=== PATIENT | female | born 1965 | race Caucasian/White ===

== ENCOUNTER 2016-04-16 05:09 | Observation (INO) | payer BC, OTHER ==
[2016-04-07 13:03] VITALS: BMI 38.0
--- NOTE | 2016-04-07 13:54 | PAT Medication Instructions ---
"Service Date Apr 07, 2016. Current Home Medication List Cephalexin Monohydrate (Keflex), 250 MG PO HS PRN for D Cholecalciferol (Vitamin D), 2,000 UNITS PO HS Ciprofloxacin Tab (Cipro), 250 MG PO HS Clonazepam (Klonopin), 0.5 MG PO HS Cyanocobalamin (Vitamin B12), 1 DOSE INJ MONTHLY Doxycycline Monohydrate (Monodox), 100 MG PO HS PRN for D Eluxadoline (Viberzi), 75 MG PO BID Levothyroxine Sodium (Synthroid), 50 MCG PO HS [place]agon[place] Carbonate (Paragonah Carbonate), 600 MG PO HS Nystatin/Triamcinolone (Mycogen || ), 1 DOSE TOP DAILY Omeprazole (Prilosec), 40 MG PO HS Quetiapine Fumarate Xr (Seroquel Xr), 400 MG PO HS Simvastatin (Zocor), 20 MG PO HS Terconazole Vaginal (Zazole), 1 DOSE TOP UD PRN for out patient therapist Instructions For Your Scheduled Surgery Cephalexin Monohydrate (Keflex), 250 MG PO HS PRN for D (rotates medications for chronic UTI's) Ciprofloxacin Tab (Cipro), 250 MG PO HS (rotates medications for chronic UTI's- currently on Cipro- will change to Keflex on 04/14/16) Doxycycline Monohydrate (Monodox), 100 MG PO HS PRN for D (rotates medications for chronic UTI's) Cyanocobalamin (Vitamin B12), 1 DOSE INJ MONTHLY (continue as usual) - Hold the following medications 24 hours prior to surgery: Terconazole Vaginal (Zazole), 1 DOSE TOP UD PRN for RN Nystatin/Triamcinolone (Mycogen || ), 1 DOSE TOP DAILY - Hold the following medications the morning of surgery: Eluxadoline (Viberzi), 75 MG PO BID (can take after surgery) - Take the following medications as scheduled the night before surgery: Simvastatin (Zocor), 20 MG PO HS Omeprazole (Prilosec), 40 MG PO HS Quetiapine Fumarate Xr (Seroquel Xr), 400 MG PO HS Levothyroxine Sodium (Synthroid), 50 MCG PO HS [place] Carbonate ([place] Carbonate), 600 MG PO HS Clonazepam (Klonopin), 0.5 MG PO HS Cholecalciferol (Vitamin D), 2,000 UNITS PO HS Cephalexin Monohydrate (Keflex), 250 MG PO HS PRN Eluxadoline (Viberzi), 75 MG PO BID If you have any questions please call us at [phone] or [phone] ( [place]) or [phone]"
[2016-04-07 14:33] LABS: PROTHROMBIN TIME (PATIENT) 10.3 SECONDS (9.0-12.0)
[2016-04-07 14:49] LABS: BUN/CREATININE RATIO 12.4 (10-20); CALCIUM 9.6 mg/dl (8.5-10.1); CREATININE 0.87 mg/dl (0.60-1.20); POTASSIUM 4.1 mmol/L (3.5-5.1)
[~2016-04-16] VITALS: Ht 157.5 cm; Wt 94.5 kg
[2016-04-16] VITALS (7 sets, daily range): BP systolic 137–155; BP diastolic 77–88; PULSE 70–89; TEMP 36.3–37; O2SAT 92–95; Ht 157.5 cm; Wt 94.5 kg
[~2016-04-16 05:09] MED LIST: CHOL20009 PO; CIPR1TAB11 PO; CLON0.5T3 PO; CYAN1DRO INJ; DOXY100C76 PO; ELUX1TAB PO; KFL/250 PO; LEVO50TA PO; LITH150C6 PO; NYSTCRE11 TOP; PRLSR20 PO; QUET200T2 PO; SIMV20TA2 PO; [UNRECOGNIZED DRUG - CODE] TOP; ~ANCEF~ALLERGY NOTED TO ORDERED MEDICATION SCH
[2016-04-16] MEDS ORDERED: LACTATED RINGER'S 1000ML 1,000 ML IV SCH (06:00)
[2016-04-16] MEDS ORDERED: CEFAZOLIN 2000 MG/60 ML D5W IV SCH (06:00)
[2016-04-16] MEDS ORDERED: ENOXAPARIN 40 MG/0.4 ML SYR SQ SCH (06:00)
[2016-04-16] MEDS ORDERED: METOCLOPRAMIDE HCL INJ 5 MG/ML 2 ML VIAL ONE (06:15)
[2016-04-16] MEDS ORDERED: MIDAZOLAM HCL 1 MG/ML 2ML VIAL ONE (06:21)
[2016-04-16] MEDS ORDERED: PROPOFOL IV EMULSION 10 MG/ML 20 ML VIAL IV ONE ×2 (06:21→06:37)
[2016-04-16] MEDS ORDERED: SUCCINYLCHOLINE CHLORIDE 20 MG/ML 10 ML VIAL IV ONE (06:21)
[2016-04-16] MEDS ORDERED: EpHEDrine SULFATE INJ 50 MG/ML AMP ONE ×2 (06:21→11:46)
[2016-04-16] MEDS ORDERED: PHENYLEPHRINE HCL INJ 10 MG/ML VIAL ONE (06:21)
[2016-04-16] MEDS ORDERED: FENTANYL CITRATE INJ 50 MCG/1 ML 2 ML VIAL ONE ×4 (06:21→13:11)
[2016-04-16] MEDS ORDERED: ROCURONIUM BROMIDE 10 MG/ML 5 ML VIAL ONE (06:21)
[2016-04-16] MEDS ORDERED: GLYCOPYRROLATE INJ 0.2 MG/ML VIAL ONE (06:21)
[2016-04-16] MEDS ORDERED: NEOSTIGMINE METHYLSULFATE 5 MG/5 ML SYR ONE (06:21)
[2016-04-16] MEDS ORDERED: DEXAMETHASONE SOD INJ 4 MG/ML VIAL ONE (06:21)
[2016-04-16] MEDS ORDERED: LIDOCAINE HCL 2% 2 ML VIAL (20MG/ML) ONE (06:21)
[2016-04-16] MEDS ORDERED: ONDANSETRON INJ 2 MG/ML 2 ML VIAL ONE ×3 (06:21→08:18)
[2016-04-16] MEDS ORDERED: KETAMINE HCL INJ 50 MG/ML 10 ML VIAL ONE (06:22)
--- NOTE | 2016-04-16 07:03 | History & Physical Bridge Note ---
H&P Re-Evaluation Bridge Note: I have examined the patient, reviewed the History & Physical and in the interval since the performance of the History & Physical I have noted the following changes of clinical significance: remains on Keflex per Dr. Sparks for chronic UTI. 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 Currently has some irritation under pannus which she has been treating. Discussed whether to proceed; per patient this looks about the same, possibly better, than usual so will plan to proceed. She understands there is a possibility of post op infection but I do not think we will be able to get irritation any better by delaying panniculectomy.
[2016-04-16] MEDS ORDERED: LIDOCAINE/EPINEPHRINE 1% 20 ML VIAL ONE ×2 (07:13→10:35)
[2016-04-16] MEDS ORDERED: ACETAMINOPHEN 1000 MG/100 ML IV IV ONE (09:08)
[2016-04-16] MEDS ORDERED: BUPIVACAINE 0.25% 30 ML VIAL ONE (10:32)
[2016-04-16] MEDS: BUPIVACAINE 0.25% 30 ML VIAL ONE (13:00)
--- NOTE | 2016-04-16 13:36 | [facility] Post Operative Brief Note ---
Immediate Operative Summary Operative Date Apr 16, 2016. Pre-Operative Diagnosis Lipodystrophy, Breast Hypertrophy Post-Operative Diagnosis Bilateral Breast Reduction and Panniculectomy Procedure(s) Performed Bilateral Breast Reduction and Panniculectomy Surgeon Dr. Yumiko Garcia Referral Management Liaison Surgeon(s) Gracie Puri PA-C Estimated Blood Loss 100ml Findings NACs pink and viable at close of case Specimens A: Left breast tissue, total weight 344 grams B: Right breast tissue, total weight 416 grams C: Lower abdominal pannus with chronic intertrigo Drains BRYAN x4 Anesthesia GET Complication(s) None Disposition Recovery Room / PACU
[2016-04-16] MEDS ORDERED: ONDANSETRON INJ 2 MG/ML 2 ML VIAL IV PRN ×2 (14:00)
[2016-04-16] MEDS ORDERED: FLUMAZENIL 0.1 MG/1 ML 10 ML VIAL IV PRN (14:00)
[2016-04-16] MEDS ORDERED: HYDROCODONE/ACETAMOPHEN 5/325MG TAB PO PRN ×2 (14:00)
[2016-04-16] MEDS ORDERED: OXAZEPAM 10MG CAP PO PRN (14:00)
[2016-04-16] MEDS ORDERED: ACETAMINOPHEN 325 MG TAB PO PRN (14:00)
[2016-04-16] MEDS ORDERED: ATROPINE SULFATE 0.1 MG/ML 5ML SYR IV PRN (14:00)
[2016-04-16] MEDS ORDERED: CEPHALEXIN MONOHYDRATE 250 MG CAP PO PRN (14:00)
[2016-04-16] MEDS ORDERED: DiphenhydrAMINE HCL 50 MG/ML VIAL IV PRN (14:00)
[2016-04-16] MEDS ORDERED: PROMETHAZINE HCL INJ 12.5 MG in SODIUM CHLORIDE 0.9% 50ML 50 ML IV PRN ×4 (14:00)
[2016-04-16] MEDS ORDERED: EpHEDrine SULFATE INJ 50 MG/ML AMP IV PRN (14:00)
[2016-04-16] MEDS ORDERED: NALOXONE HCL 0.4 MG/1 ML VIAL/CARP IV PRN (14:00)
[2016-04-16] MEDS ORDERED: MEPERIDINE HCL 25 MG/ML CARP IV PRN (14:00)
--- NOTE | 2016-04-16 14:02 | Discharge Instructions ---
Discharge Instructions Admission Reason for Admission: Bilateral Symptomatic Macromastia, Abdominal Benjamin Discharge Discharge Diagnosis / Problem: macromastia and abdominal pannus Discharge Goals Goal(s): Decrease discomfort Activity Recommendations Activity Limitations: as noted below ACTIVITY RECOMMENDATIONS: __Normal activities _x_No bending, lifting or straining __No driving __Driving allowed when you are off pain medications __Walking permitted __You should have help at home for ___ days DRESSINGS: __No dressings required _x_Keep dressings dry/in place until first office visit __Remove dressings ___ and leave dressings off __Apply ice ___ days __Remove dressings and reapply garment __Apply antibiotic ointment (Bacitracin, Neosporin, etc) to wounds 3-4 times/ day for 10 days BATHING: _x_Keep dressings dry _x_Sponge bathing permitted __Showering permitted _x_No swimming, hot tubs or soaking in a tub MEDICATIONS: Resume previous medications unless instructed otherwise by your surgeon. _x_Do not use aspirin, Motrin, Advil or Ibuprofen as these may promote bleeding. Please use Tylenol. _x_Prescription(s) provided: pain medication was provided at your last office visit OTHER INSTRUCTIONS: _x_Record drain output 2-3 times per day SPECIAL CARE INSTRUCTIONS: * It is normal to have a mild fever after surgery. If your temperature is higher than 101.5 degrees F, please call the office at [phone]. * Constipation is a typical side effect of pain medication. An over-the- counter stool softener will help relieve this. * Leaking around surgical drains may occur and should not cause concern. Sometimes these drains become clogged. If this happens, remove the bulb and milk the clot out of the tube, then replace the bulb. * Drainage from wounds after liposuction is normal and should be expected. Garments will become soiled. You should protect furniture and bedding. This drainage should mostly subside within 2-3 days. Leave garments in place unless instructed to remove them. * If you have unusual drainage from a wound or are concerned you have an infection or have any questions or concerns, please call the office at [phone]. FOLLOW UP VISIT: If not already scheduled, please call the office, , when you return home after surgery to schedule an appointment to be seen in __2_ days. . Current Hospital Diet Patient's current hospital diet: Regular Diet Discharge Diet Recommended Diet: Regular Diet Procedures Procedures Performed: Bilateral Breast Reduction and Panniculectomy Pending Studies Studies pending at discharge: yes List of pending studies: pathology Medical Emergencies . Who to Call and When: Medical Emergencies: If at any time you feel your situation is an emergency, please call 911 immediately. . Non-Emergent Contact Non-Emergency issues call your: Primary Care Provider, Surgeon . "Provider Documentation" section prepared by Gracie uPri. VTE Core Measure Inpt VTE Proph given/why not?: Enoxaparin (Lovenox)SQ
[2016-04-16] MEDS ORDERED: HYDROmorphone INJ 1 MG/ML SYR ONE (14:10)
[2016-04-16] MEDS: HYDROmorphone INJ 1 MG/ML SYR IV PRN ×7 (14:14→15:10)
[2016-04-16] MEDS ORDERED: IV FLUIDS COMPLETED PRN (14:30)
--- NOTE | 2016-04-16 15:39 | Progress Note ---
Progress Note Post op check Doing well. Sleepy. afebrile VSS dressings c/d/i to breasts and abdomen NACs pink and viable bilaterally Stable post op continued observation cueto out in am
[2016-04-16] MEDS: LACTATED RINGER'S 1000ML 1,000 ML IV SCH (17:27)
[2016-04-16] MEDS: CEFAZOLIN IV 2,000 MG in DEXTROSE 5% 50ML 50 ML IV SCH (19:14)
[2016-04-16] MEDS ORDERED: LEVOTHYROXINE 50 MCG TAB PO SCH (21:00)
[2016-04-16] MEDS ORDERED: CLONAZEPAM 0.5 MG TAB PO SCH (21:00)
[2016-04-16] MEDS ORDERED: QUETIAPINE FUMARATE 200 MG TABCR PO SCH (21:00)
[2016-04-16] MEDS ORDERED: SIMVASTATIN 20 MG TAB PO SCH (21:00)
[2016-04-17] MEDS: CEFAZOLIN IV 2,000 MG in DEXTROSE 5% 50ML 50 ML IV SCH (01:42)
[2016-04-17] MEDS: LACTATED RINGER'S 1000ML 1,000 ML IV SCH ×2 (03:15→13:15)
[2016-04-17 03:51] VITALS: BP 144/85; PULSE 78; TEMP 36.8; O2SAT 92
[2016-04-17 07:10] VITALS: BP 155/93; PULSE 77; TEMP 36.6; O2SAT 93
[2016-04-17] MEDS ORDERED: ENOXAPARIN 40 MG/0.4 ML SYR SQ SCH (09:00)
[2016-04-17] MEDS ORDERED: MULTIVITAMIN TAB PO SCH (09:00)
[2016-04-17] MEDS ORDERED: CHOLECALCIFEROL 1000 INTER.UNIT TAB PO SCH (09:00)
[2016-04-17 11:39] VITALS: BP 118/74; PULSE 77; TEMP 36.3; O2SAT 93
--- NOTE | 2016-04-17 12:00 | Surgery Progress Note ---
Surgery Progress Note Date of Service Apr 17, 2016. Subjective Post OP Day: 1 + feeling well, + pain controlled, No complaints, No nausea, No vomiting Objective Vital Signs: Date Time Temp Pulse Resp B/P Pulse Ox O2 Delivery O2 Flow Rate FiO2 04/17/16 11:39 36.3 77 18 118/74 93 Room Air 04/17/16 07:40 Room Air 04/17/16 07:10 36.6 77 17 155/93 93 Room Air 04/17/16 03:51 36.8 78 18 144/85 92 Room Air 04/16/16 23:06 36.8 81 18 155/88 95 Nasal Cannula 2.0 04/16/16 20:00 37.0 80 16 138/83 93 Nasal Cannula 2.0 04/16/16 19:53 Nasal Cannula 2.0 04/16/16 18:54 36.7 81 18 152/88 93 Nasal Cannula 2.0 04/16/16 18:00 36.6 82 18 142/84 93 Nasal Cannula 2.0 04/16/16 17:30 36.3 85 16 147/87 92 Nasal Cannula 2.0 04/16/16 17:00 Nasal Cannula 2.0 04/16/16 17:00 Room Air 04/16/16 17:00 36.6 89 14 137/81 94 Nasal Cannula 2.0 04/16/16 16:43 152/85 04/16/16 16:40 84 15 96 04/16/16 16:40 84 15 04/16/16 16:35 74 14 96 04/16/16 16:35 74 14 04/16/16 16:30 79 15 97 04/16/16 16:30 81 15 04/16/16 16:28 144/91 04/16/16 16:25 78 14 04/16/16 16:25 82 14 96 04/16/16 16:20 83 16 96 04/16/16 16:20 84 16 04/16/16 16:15 67 13 04/16/16 16:15 70 13 94 04/16/16 16:13 149/83 04/16/16 16:10 88 18 04/16/16 16:10 89 18 95 04/16/16 16:05 77 13 95 04/16/16 16:05 78 13 04/16/16 16:04 75 16 2/8/17 16:04 73 16 94 2/8/17 15:59 78 14 95 2/8/17 15:59 78 14 04/16/17 15:58 145/78 04/16/17 15:54 67 16 2/17 15:54 68 16 95 2/8/17 15:53 132/79 04/16/17 15:49 67 16 2/8/17 15:49 65 16 94 8/17 15:48 144/81 04/16/16 15:44 74 14 94 28/17 15:44 79 14 17 15:43 150/95 04/16/ 15:39 65 16 2/17 15:39 68 16 94 04/16/16 15:38 151/90 04/16/16 15:36 74 16 94 17 15:36 77 16 17 15:33 149/84 17 15:31 77 15 17 15:31 77 15 94 17 15:28 139/78 04/16/16 15:26 87 16 17 15:26 87 16 94 04/16/16 15:23 131/83 17 15:21 73 16 94 04/16/16 15:21 70 16 17 15:18 144/76 04/16/16 15:16 89 16 93 04/16/16 15:16 87 16 04/16/16 15:14 36.8 17 15:13 153/91 17 15:11 82 17 94 17 15:11 83 17 17 15:10 82 16 2/17 15:10 81 16 93 17 15:08 137/79 04/16/16 15:05 68 14 93 04/16/16 15:05 67 14 17 15:03 150/82 04/16/16 15:00 78 16 95 04/16/17 15:00 81 16 17 14:58 147/74 04/16/16 14:55 70 16 95 04/16/ 14:55 75 16 04/16/16 14:53 149/74 04/16/16 14:50 82 19 04/16/16 14:50 81 19 94 04/16/16 14:48 137/68 04/16/16 14:45 84 16 04/16/16 14:45 84 16 94 04/16/16 14:40 86 16 95 04/16/16 14:40 85 16 04/16/16 14:39 86 16 04/16/16 14:39 86 16 95 04/16/16 14:38 139/80 04/16/16 14:34 86 18 98 04/16/16 14:34 86 18 04/16/16 14:33 146/81 04/16/16 14:29 87 14 04/16/16 14:29 87 14 99 04/16/16 14:28 142/82 04/16/16 14:24 87 17 98 04/16/16 14:24 86 17 04/16/16 14:23 145/92 04/16/16 14:19 91 19 04/16/16 14:19 91 19 99 04/16/16 14:18 145/89 04/16/16 14:16 91 19 04/16/16 14:16 92 19 99 04/16/16 14:13 133/97 04/16/16 14:11 94 18 04/16/16 14:11 93 18 100 04/16/16 14:08 154/90 04/16/16 14:06 93 19 04/16/16 14:06 93 19 100 04/16/16 14:03 152/82 04/16/16 14:01 96 19 04/16/16 14:01 96 19 98 04/16/16 13:58 122/90 04/16/16 13:56 36.6 100 20 135/78 95 Mask 10 04/16/16 13:56 98 23 96 04/16/16 13:56 101 23 Physical Exam: Pilo drainage (sanginous drainage in all drains) General Appearance: WD/WN, no apparent distress Incision(s): clean, dry, intact, no erythema, ecchymosis, findings (nipples perfusing and with sensation bilaterally, some bleeding right nipple) Assessment & Plan s/p bilateral breast reduction and panniculectomy 1. breast drains removed. patient will be d/c home today and follow-up in office tomorrow
[2016-04-17 13:22] VITALS: BP 118/74; PULSE 77; TEMP 36.3; O2SAT 93
[2016-04-17 14:57] VITALS: BP 139/83; PULSE 84; TEMP 37; O2SAT 92
[2016-04-17 16:00] VITALS: O2SAT 92
--- NOTE | 2016-04-17 17:35 | OPERATIVE REPORT ---
DATE OF OPERATION: 04/16/2016 PREOPERATIVE DIAGNOSIS: Bilateral symptomatic macromastia and overhanging abdominal pannus with chronic intertrigo. POSTOPERATIVE DIAGNOSIS: Same. PROCEDURE: Bilateral reduction mammoplasty via inferior pedicle technique with lower abdominal panniculectomy. SURGEON: Dr. Yumiko Nicole. FELLER BUNCHER OPERATOR: Gracie Puri PA-C. ANESTHESIA: General. COMPLICATIONS: None. INDICATION FOR THE PROCEDURE: The patient is a 50-year-old female who presented with complaints of back, neck and shoulder pain as well as intertrigo related to macromastia. In addition, she had an overhanging abdominal pannus with chronic intertrigo refractory to topical as well as oral antibiotics. OPERATION AND FINDINGS: BRIEF DESCRIPTION OF THE PROCEDURE: The risks, benefits and alternatives of the procedure were explained to the patient who agreed and signed consent. She was identified and marked in the preoperative holding area. She was brought to the operating room where she was positioned supine and placed under anesthesia without incident. Surgical sites were prepped and draped sterilely. A time-out procedure was performed. Markings were reassessed on the breast and a 7 cm pedicle was marked. I began with the left side. 1% lidocaine with epinephrine was used to anesthetize the planned incisions. A 38 mm cookie cutter was used to circumscribe the nipple-areolar complex. The previously marked 7 cm pedicle was incised using a 15 blade scalpel and deepithelialized. I began with medial dissection of the pedicle using electrocautery. Cautery was used to incise through dermis and breast parenchyma down to chest wall, taking care not to undermine the pedicle during dissection. A similar procedure was undertaken on the lateral aspect of the pedicle again taking care not to undercut the pedicle. Lastly, the pedicle was dissected out superiorly using electrocautery. This was carried down to chest wall. I then began excision of the medial breast tissue followed by excision of the lateral breast tissue. A 15 blade scalpel was used to make the inframammary fold incision and electrocautery was used to deepen the incision through dermis and breast parenchyma. Dissection was then carried superiorly to the level of the superior incision. Superior incision was then incised using a 15 blade scalpel and again dissected using electrocautery. A similar procedure was undertaken laterally and then around the keyhole portion of the incision. Care was taken to leave some fat on the lateral pectoral fascia in order to protect the T4 intercostal nerve. Hemostasis was achieved with electrocautery. Specimen was removed in its entirety and passed off for weighing. Left breast resection weight was 344 grams. The wound was irrigated with normal saline. Hemostasis was achieved with electrocautery. 0.25% Marcaine plain was used to anesthetize the incisions as well as the pectoralis fascia. A 15 [place] Pilo drain was brought out through a separate stab incision. The nipple-areolar complex was advanced into the keyhole using 2-0 Vicryl deep dermal suture. The T-junction was approximated using 2-0 Vicryl deep dermal suture. Wound was first closed in a lateral to mid breast direction using 2-0 Vicryl deep dermal and then medial to mid breast direction using 2-0 Vicryl deep dermal sutures. The vertical limb was reapproximated using 2-0 Vicryl deep dermal. The nipple-areolar complex was also inset using 2-0 Vicryl deep dermal. Next, the superficial dermal layer was closed using 2-0 PDO running Quill suture along the inframammary fold and 3-0 PDS for the vertical limb and nipple-areolar complex incisions. Lastly 3-0 Monocryl running subcuticular suture was placed. Inframammary fold as well as the vertical limb were dressed using Dermabond and Prineo was placed. The inframammary fold, as well as the vertical limb was dressed with Prineo and Dermabond was placed around the nipple-areolar complex. A similar procedure was undertaken on the right side. Total resection weight of the larger right breast was 416 grams. At the end of the case, there was reasonable symmetry and both nipple-areolar complexes were pink and viable. At this point, attention was turned to the abdominal pannus. The inferior incision was marked 6.5 cm superior to the vulvar commissure and was extended toward both anterior superior iliac spines to incorporate lateral dog ears, which would have been created by a shorter resection. 1% lidocaine with epinephrine was used to anesthetize the planned incision. A 15 blade scalpel was used to make the incision through the fat and into underlying dermis. The incision was deepened into subcutaneous fat and carried down to rectus fascia. This planned skin resection incorporated all of the area of chronic intertrigo. Dissection was carried along the rectus fascia toward the umbilicus. Perforating vessels were cauterized during dissection. Lateral dissection was undertaken in similar fashion. I stopped a couple of centimeters short of the umbilicus and did not plan to mobilize the umbilicus due to history of splenectomy with a left upper quadrant subcostal incision which could potentially have caused necrosis of the abdominal skin. At this point the abdominal skin flap was divided and advanced toward the mons pubis. A 2-0 Vicryl suture was used to approximate the midline. Hemostasis was achieved prior to closure using electrocautery. The wound was irrigated with saline. 0.25% Marcaine plain was used to anesthetize the rectus fascia and the drain exit sites. Two 15 [place] Pilo drains were placed in the wound bed and brought out through a separate stab incision in the mons pubis. 3-0 nylon sutures were used to suture the drains into place. At this point the superior skin flap was marked for excision. Once I was certain the abdominal skin could be closed excision was undertaken using a 15 blade scalpel to incise skin was into the dermis. The incision was deepened through dermis, subcutaneous fat, Brian's fascia and it was removed. This was performed on both sides of the abdomen. I then began closure in a lateral to medial direction bilaterally using 2-0 Vicryl Brian's fascia sutures, 2-0 Vicryl deep dermal sutures, 2-0 PDO running superficial dermal Quill suture, 3-0 Monocryl running subcuticular suture. Dermabond Prineo was placed. Dry dressings were placed to the breast and abdomen. Support bra was placed as well as an abdominal binder. The procedure was tolerated well. The patient was awakened and transferred to recovery room in satisfactory condition. I attest to the content of the Intraoperative Record and any orders documented therein. Any exceptio ns are noted below.
--- NOTE | 2016-04-22 08:39 | Discharge Summary ---
Discharge Summary Admission Date/Reason Apr 16, 2016 at 13:58 Bilateral Symptomatic Macromastia, Abdominal Benjamin. Discharge Date/Disposition Apr 17, 2016 Home Diagnosis Principal Diagnosis: Macromastia and abdominal pannus Procedure(s) Performed bilateral breast reduction and panniculectomy Medication Reconciliation Continued Medications: Cephalexin Monohydrate (Keflex) 250 Mg Cap 250 MG PO HS PRN for D, CAP Cholecalciferol (Vitamin D) 2,000 Unit Tab 2000 UNITS PO HS Clonazepam (Klonopin) 0.5 Mg Tab 0.5 MG PO HS, TAB Cyanocobalamin (Vitamin B12) 3,000 Mcg/Ml Reese 1 DOSE INJ MONTHLY LAST DOSE -04/02/16 Eluxadoline (Viberzi) 75 Mg Tab 75 MG PO BID Levothyroxine Sodium (Synthroid) 50 Mcg Tab 50 MCG PO HS [place] Carbonate ([place] Carbonate) 150 Mg Cap 600 MG PO HS Omeprazole (Prilosec) 20 Mg Capcr 40 MG PO HS, CAP Quetiapine Fumarate Xr (Seroquel Xr) 200 Mg Tabcr 400 MG PO HS, TAB Simvastatin (Zocor) 20 Mg Tab 20 MG PO HS Admission Physical Exam As per Admitting History & Physical. Hospital Course Patient presented to [facility] with history of macromastia and abdominal pannus. She was taken to the OR and underwent bilateral breast reduction and panniculectomy. There were no complications. On POD # 1, she was feeling well, pain controlled, and tolerated a regular diet. Her santosh drains were removed from the breasts. Her incisions were CDI, and her nipples were pink with sensation bilaterally. her abdominal drains had serosanguineous drainage. She was discharged home with instructions to follow-up in office Discharge Instructions Please refer to the electronic Patient Visit Report (Discharge Instructions) for additional information.
== END 2016-04-17 18:15 | disposition home health service (06) ==
LOC: ENRESERVTM → ENRESERVDT → C.ACU 05:09 → C.MSW 13:58
PROVIDERS: ADMIT Plastic Surgery; ATTEND Plastic Surgery
DX: E88.1 Lipodystrophy, not elsewhere classified (principal); N62 Hypertrophy of breast; L30.4 Erythema intertrigo; N39.0 Urinary tract infection, site not specified; F30.9 Manic episode, unspecified; I10 Essential (primary) hypertension; E03.9 Hypothyroidism, unspecified; K21.9 Gastro-esophageal reflux disease without esophagitis; E78.5 Hyperlipidemia, unspecified; Z98.84 Bariatric surgery status; Z80.1 Family history of malignant neoplasm of trachea, bronchus and lung; Z80.0 Family history of malignant neoplasm of digestive organs; Z80.3 Family history of malignant neoplasm of breast

== ENCOUNTER 2016-11-24 10:45 | Emergency (ER) | payer BC ==
[~2016-11-24] VITALS: Ht 165.1 cm; Wt 92.9 kg
[~2016-11-24 10:45] MED LIST changes: -CIPR1TAB11 PO; -DOXY100C76 PO; -NYSTCRE11 TOP; -[UNRECOGNIZED DRUG - CODE] TOP; -~ANCEF~ALLERGY NOTED TO ORDERED MEDICATION SCH
[2016-11-24 10:58] VITALS: TEMP 36.7; Ht 165.1 cm; Wt 92.9 kg
[2016-11-24] MEDS ORDERED: ACETAMINOPHEN 500 MG TAB PO STA (11:43)
[2016-11-24] MEDS ORDERED: METH500T37 PO (11:52)
[2016-11-24] MEDS ORDERED: ALMO1TAB PO (11:52)
[2016-11-24] MEDS ORDERED: NRT/25 PO (11:52)
[2016-11-24] MEDS ORDERED: CMP/10 PO (11:52)
[2016-11-24] MEDS ORDERED: NRN100 PO (11:52)
[2016-11-24] MEDS ORDERED: QUET5TAB PO (11:52)
--- NOTE | 2016-11-24 12:27 | DIAGNOSTIC IMAGING REPORT ---
CHEST ONE VIEW PORTABLE CLINICAL HISTORY: Left-sided chest wall pain COMPARISON STUDY: No previous studies for comparison. FINDINGS: The cardiac and mediastinal contours remain stable. There is mild nonspecific fullness in the AP window region. This remains unchanged from 2008, and therefore is of doubtful clinical significance. There is no focal pulmonary consolidation. There is no failure. There are no pleural effusions.[ IMPRESSION: AP portable study. No acute findings. Electronically signed by: Yuan Montgomery M.D. 11/24/2016 12:26 PM Dictated Date/Time: 11/24/2016 12:24 PM
--- NOTE | 2016-11-24 12:28 | DIAGNOSTIC IMAGING REPORT ---
LEFT SHOULDER MIN 2 VIEWS ROUTINE CLINICAL HISTORY: pain trauma COMPARISON: None. DISCUSSION: The bones and joint spaces appear intact. There is no evidence of fracture, dislocation or bony disease. There is no evidence for soft tissue swelling. IMPRESSION: Negative study. The above report was generated using voice recognition software. It may contain grammatical, syntax or spelling errors. Electronically signed by: Mushtaq Rodrigues M.D. 11/24/2016 12:26 PM Dictated Date/Time: 11/24/2016 12:25 PM
--- NOTE | 2016-11-24 12:38 | DIAGNOSTIC IMAGING REPORT ---
RIGHT FOOT MIN 3 VIEWS ROUTINE CLINICAL HISTORY: Right great toe pain TRAUMA COMPARISON: None. DISCUSSION: No acute fractures or dislocations are visualized. There are equivocal postsurgical changes of a first metatarsal bunionectomy. There is an area of sclerosis within the distal phalanx the great toe likely representing a bone island. Minor irregularity involving the medial aspect of the distal phalanx the great toe on the oblique view, likely relates to chronic degenerative change. There are no erosive changes. There are small calcaneal spurs. IMPRESSION: 1. Presumed postsurgical changes of a first metatarsal head bunionectomy 2. No acute fractures or dislocations are visualized. Electronically signed by: Yuan Montgomery M.D. 11/24/2016 12:37 PM Dictated Date/Time: 11/24/2016 12:34 PM
--- NOTE | 2016-11-24 13:00 | DIAGNOSTIC IMAGING REPORT ---
CERVICAL SPINE W/O CT DOSE: 2163.34 mGy.cm HISTORY: Trauma neck pain - fall TECHNIQUE: Multiaxial CT images of the cervical spine were performed and reformatted in the sagittal and coronal plane without the use of contrast. A dose lowering technique was utilized adhering to the principles of ALARA. COMPARISON: None. FINDINGS: No fractures. No subluxation. Prevertebral soft tissues and the C1-C2 interval are intact. No pneumothorax. Findings of an anterior fusion at the C4-C5 level. Fusion appears solid. IMPRESSION: No fractures within the cervical spine. Stable anterior fusion at the C4-C5 level The above report was generated using voice recognition software. It may contain grammatical, syntax or spelling errors. Electronically signed by: Mushtaq Rodrigues M.D. 11/24/2016 12:59 PM Dictated Date/Time: 11/24/2016 12:57 PM
--- NOTE | 2016-11-24 13:04 | DIAGNOSTIC IMAGING REPORT ---
LUMBAR SPINE WITHOUT CLINICAL HISTORY: 51 years-old Female presenting with L-spine pain, fell down 12 steps, neck pain, headache. TECHNIQUE: Multidetector CT of the lumbar spine was performed without the use of intravenous contrast. IV contrast: None. A dose lowering technique was used consistent with the principles of ALARA (as low as reasonably achievable). COMPARISON: MR from 10/26/2015. CT DOSE (mGy.cm): The estimated cumulative dose is 2163.[address] head and CT cervical spine. FINDINGS: Swing Frame Grinder Operator topogram: Cholecystectomy clips noted. Normal lumbar lordosis. Vertebral bodies maintain normal height and alignment. Intervertebral disc spaces preserved. Mild degenerative change evidenced by anterior osteophytosis at several levels. No acute fracture or subluxation. No significant disc bulge. No evidence of spinal canal or neural foraminal narrowing. Paraspinal soft tissues demonstrate atherosclerosis of the abdominal aorta, which is normal in caliber. Calcification noted in the liver parenchyma. Paraspinal musculature normal. Normal subcutaneous infiltration over the right lower flank and right upper buttocks, possibly contusion. IMPRESSION: 1. No acute osseous injury of the lumbar spine. 2. Possible contusion of the lower right flank and upper right buttocks. Electronically signed by: Andrade Villalobos M.D. 11/24/2016 1:03 PM Dictated Date/Time: 11/24/2016 12:59 PM
--- NOTE | 2016-11-24 13:04 | DIAGNOSTIC IMAGING REPORT ---
CT OF THE HEAD WITHOUT CONTRAST CLINICAL HISTORY: Headache - fall. COMPARISON STUDY: Head CT August 02, 2011 and MRI of the brain May 27, 2013. TECHNIQUE: Helical axial images of the head were obtained without IV contrast. Automated exposure control was utilized for the study. A dose lowering technique was utilized adhering to the principles of ALARA. FINDINGS: No acute intracranial hemorrhage, midline shift or mass effect is present. Ventricular system is normal. Basilar cisterns are patent. There are no extra-axial collections. Ahumada-white differentiation is maintained. There is a small right posterior scalp contusion with no calvarial fracture. Visualized portions of the sinuses and mastoid air cells are clear. IMPRESSION: 1. No acute intracranial findings. 2. Small right posterior scalp contusion. No calvarial fracture. Electronically signed by: Say Torres M.D. 11/24/2016 1:03 PM Dictated Date/Time: 11/24/2016 1:00 PM
--- NOTE | 2016-11-24 13:55 | EMERGENCY ROOM VISIT NOTE ---
History Report prepared by Ahsan: Arlyn Mock Under the Supervision of: Dr. Bony Cramer M.D. First contact with patient: 11:16 Chief Complaint: FALL Stated Complaint: FELL, LEFT SIDE ALL HURTS, HEAD HURTS History of Present Illness The patient is a 51 year old female who presents to the Emergency Room with complaints of an episode of fall TOOLER. The patient was going down the stairs carrying some clothing. She lost her footing and fell down 12-13 steps. She was on her left side for most of the fall then hit the landing and went down the remaining 4 steps on her back. She hit her head at the end of the fall. She denies feeling dizzy, lightheaded, or chest pain before the fall. She did not lose consciousness. She has been able to walk since then. She has some bleeding from her right great toe. She has pain in her head, left shoulder, left side, and lower back. She denies any chest pain, hip pain, neck pain, nausea, vomiting , change in vision, or change in hearing. He is not on any blood thinners. She has a history of fibromyalgia and back surgery. Source of History: patient Onset: TOOLER Position: other (global) Symptom Intensity: 12-13 steps Quality: other (fall) Timing: other (episodic) Associated Symptoms: + headache, + back pain (lower), No LOC, No neck pain, No chest pain, No nausea, No vomiting Note: Pt reports right great toe pain, left shoulder pain, left side pain. Pt denies dizziness, lightheadedness, hip pain, change in vision/hearing. Review of Systems See HPI for pertinent positives and negatives. A total of ten systems were reviewed and were otherwise negative. Past Medical & Surgical Medical Problems: (1) Abn Blood Chemistry Nec (2) Headache (3) Hematuria, Unspecified (4) Hypertension Nos (5) Leukocytosis (6) Macromastia (7) Morbid Obesity (8) Oth Malaise&Fatigue (9) Sprain Of Wrist Nos (10) Suicidal Ideation (11) Upper GI bleed Family History Kidney stones Social History Smoking Status: Never Smoker Alcohol Use: none Drug Use: none Marital Status: Housing Status: lives with family Occupation Status: employed Current/Historical Medications Scheduled Almotriptan Malate (Almotriptan Malate), 6.25 MG PO DIRECTED Cholecalciferol (Vitamin D), 2,000 UNITS PO HS Clonazepam (Klonopin), 0.5 MG PO HS Cyanocobalamin (Vitamin B12), 1 DOSE INJ MONTHLY Eluxadoline (Viberzi), 75 MG PO BID Gabapentin (Gabapentin), 300 MG PO HS Levothyroxine Sodium (Synthroid), 50 MCG PO HS [place] Carbonate ([place] Carbonate), 600 MG PO HS Nortriptyline Hcl (Pamelor), 50 MG PO HS Omeprazole (Prilosec), 40 MG PO HS Quetiapine Fumarate (Seroquel), 50 MG PO HS Quetiapine Fumarate Xr (Seroquel Xr), 400 MG PO HS Simvastatin (Zocor), 20 MG PO HS Scheduled PRN Cephalexin Monohydrate (Keflex), 250 MG PO HS PRN for UNDECIDED Methocarbamol (Robaxin), 500-1,000 MG PO BID PRN for Migraine Prochlorperazine Maleate (Prochlorperazine Maleate), 10 MG PO Q6H PRN for UNDECIDED Allergies Coded Allergies: Penicillins (Verified Allergy, Intermediate, HIVES,HAS HAD CEPHALOSPORINS , 04/16/16) HIVES Risperidone (Verified Allergy, Unknown, HIVES, 04/16/16) Lamotrigine (Verified Adverse Reaction, Mild, GI UPSET, 04/16/16) Aspirin (Verified Adverse Reaction, Unknown, avoids secondary to gastric bypass, 04/16/16) Corticosteroids (Verified Adverse Reaction, Unknown, AVOID D/T HX GASTRIC BYPASS, 04/16/16) Morphine (Verified Adverse Reaction, Unknown, GI UPSET, 04/16/16) NSAIDs (Verified Adverse Reaction, Unknown, HX GASTRIC BYPASS, 04/16/16) Oxycodone (Verified Adverse Reaction, Unknown, GI UPSET, 04/16/16) Propranolol (Verified Adverse Reaction, Unknown, vertigo, 04/16/16) Trazodone (Verified Adverse Reaction, Unknown, nausea, 04/16/16) Physical Exam Vital Signs Date Time Temp Pulse Resp B/P (MAP) Pulse Ox O2 Delivery O2 Flow Rate FiO2 11/24/16 14:00 74 18 131/65 96 11/24/16 13:07 74 18 139/91 96 Room Air 11/24/16 10:58 36.7 81 18 139/84 96 Room Air Physical Exam GENERAL: Awake, alert, well-appearing, in no distress HENT: 2 cm hematoma on the occipital region of the scalp. Oropharynx unremarkable. EYES: Normal conjunctiva. Sclera non-icteric. NECK: Supple. No nuchal rigidity. FROM. No JVD. Midline tenderness to the C5- C7. RESPIRATORY: Clear to auscultation. CARDIAC: Regular rate, normal rhythm. Extremities warm and well perfused. Pulses equal. ABDOMEN: Soft, non-distended. No tenderness to palpation. No rebound or guarding. No masses. RECTAL: Deferred. MUSCULOSKELETAL: Mild left shoulder and left chest wall pain. The back is symmetrical on inspection without obvious abnormality. Lumbar spine tenderness throughout. There is no CVA tenderness to palpation. No joint edema. Hip is stable. No pain with internal external rotation. LOWER EXTREMITIES: Calves are equal size bilaterally and non-tender. No edema. No discoloration. NEURO: Normal sensorium. No sensory or motor deficits noted. SKIN: No rash or jaundice noted. Medical Decision & Procedures ER Provider Diagnostic Interpretation: Radiology results as stated below per my review and radiologist interpretation: LEFT SHOULDER MIN 2 VIEWS ROUTINE CLINICAL HISTORY: pain trauma COMPARISON: None. DISCUSSION: The bones and joint spaces appear intact. There is no evidence of fracture, dislocation or bony disease. There is no evidence for soft tissue swelling. IMPRESSION: Negative study. The above report was generated using voice recognition software. It may contain grammatical, syntax or spelling errors. Electronically signed by: Mushtaq Rodrigues M.D. 11/24/2016 12:26 PM Dictated Date/Time: 11/24/2016 12:25 PM RIGHT FOOT MIN 3 VIEWS ROUTINE CLINICAL HISTORY: Right great toe pain TRAUMA COMPARISON: None. DISCUSSION: No acute fractures or dislocations are visualized. There are equivocal postsurgical changes of a first metatarsal bunionectomy. There is an area of sclerosis within the distal phalanx the great toe likely representing a bone island. Minor irregularity involving the medial aspect of the distal phalanx the great toe on the oblique view, likely relates to chronic degenerative change. There are no erosive changes. There are small calcaneal spurs. IMPRESSION: 1. Presumed postsurgical changes of a first metatarsal head bunionectomy 2. No acute fractures or dislocations are visualized. Electronically signed by: Yuan Montgomery M.D. 11/24/2016 12:37 PM Dictated Date/Time: 11/24/2016 12:34 PM CHEST ONE VIEW PORTABLE CLINICAL HISTORY: Left-sided chest wall pain COMPARISON STUDY: No previous studies for comparison. FINDINGS: The cardiac and mediastinal contours remain stable. There is mild nonspecific fullness in the AP window region. This remains unchanged from 2008, and therefore is of doubtful clinical significance. There is no focal pulmonary consolidation. There is no failure. There are no pleural effusions.[ IMPRESSION: AP portable study. No acute findings. Electronically signed by: Yuan Montgomery M.D. 11/24/2016 12:26 PM Dictated Date/Time: 11/24/2016 12:24 PM LUMBAR SPINE WITHOUT CLINICAL HISTORY: 51 years-old Female presenting with L-spine pain, fell down 12 steps, neck pain, headache. TECHNIQUE: Multidetector CT of the lumbar spine was performed without the use of intravenous contrast. IV contrast: None. A dose lowering technique was used consistent with the principles of ALARA (as low as reasonably achievable). COMPARISON: MR from 10/26/2015. CT DOSE (mGy.cm): The estimated cumulative dose is 2163.[address] head and CT cervical spine. FINDINGS: Automatic Vulcanizing Lead Operator topogram: Cholecystectomy clips noted. Normal lumbar lordosis. Vertebral bodies maintain normal height and alignment. Intervertebral disc spaces preserved. Mild degenerative change evidenced by anterior osteophytosis at several levels. No acute fracture or subluxation. No significant disc bulge. No evidence of spinal canal or neural foraminal narrowing. Paraspinal soft tissues demonstrate atherosclerosis of the abdominal aorta, which is normal in caliber. Calcification noted in the liver parenchyma. Paraspinal musculature normal. Normal subcutaneous infiltration over the right lower flank and right upper buttocks, possibly contusion. IMPRESSION: 1. No acute osseous injury of the lumbar spine. 2. Possible contusion of the lower right flank and upper right buttocks. Electronically signed by: Andrade Villalobos M.D. 11/24/2016 1:03 PM Dictated Date/Time: 11/24/2016 12:[address] OF THE HEAD WITHOUT CONTRAST CLINICAL HISTORY: Headache - fall. COMPARISON STUDY: Head CT August 02, 2011 and MRI of the brain May 27, 2013. TECHNIQUE: Helical axial images of the head were obtained without IV contrast. Automated exposure control was utilized for the study. A dose lowering technique was utilized adhering to the principles of ALARA. FINDINGS: No acute intracranial hemorrhage, midline shift or mass effect is present. Ventricular system is normal. Basilar cisterns are patent. There are no extra-axial collections. Ahumada-white differentiation is maintained. There is a small right posterior scalp contusion with no calvarial fracture. Visualized portions of the sinuses and mastoid air cells are clear. IMPRESSION: 1. No acute intracranial findings. 2. Small right posterior scalp contusion. No calvarial fracture. Electronically signed by: Say Torres M.D. 11/24/2016 1:03 PM Dictated Date/Time: 11/24/2016 1:00 PM CERVICAL SPINE W/O CT DOSE: 2163.34 mGy.cm HISTORY: Trauma neck pain - fall TECHNIQUE: Multiaxial CT images of the cervical spine were performed and reformatted in the sagittal and coronal plane without the use of contrast. A dose lowering technique was utilized adhering to the principles of ALARA. COMPARISON: None. FINDINGS: No fractures. No subluxation. Prevertebral soft tissues and the C1-C2 interval are intact. No pneumothorax. Findings of an anterior fusion at the C4-C5 level. Fusion appears solid. IMPRESSION: No fractures within the cervical spine. Stable anterior fusion at the C4-C5 level The above report was generated using voice recognition software. It may contain grammatical, syntax or spelling errors. Electronically signed by: Mushtaq Rodrigues M.D. 11/24/2016 12:59 PM Dictated Date/Time: 11/24/2016 12:57 PM ED Course 1120: The patient was evaluated in room A2. A complete history and physical exam was performed. 1348: I reevaluated the patient. I discussed results and discharge instructions : She verbalized understanding and agreement. The patient is ready for discharge. Medical Decision I reviewed the patient's past medical history, medications, and the nursing notes as described above. Differential diagnosis: ICH, concussion, fracture, soft tissue injury, musculoskeletal strain. Patient is a 51-year-old woman with a past medical history of fibromyalgia's emergency department after a mechanical fall when she misstepped on the stairs while carrying laundry per history of present illness. Exam the patient is in no acute distress, afebrile with stable vital signs. On exam has mild 2 cm hematoma in the occipital scalp but no laceration, lower C-spine and diffuse L- spine tenderness to palpation, left shoulder pain. This patient is neurologically intact. Considering the mechanism of falling down 12 stairs with head strike, CT head was done and negative. CT of T and L-spine negative for acute fracture. X-rays negative. Patient's cervical collar was cleared. Able to ambulate with steady gait. Findings and plan for pcp follow-up d/w patient. Patient agreeable and d/c'd per discharge instructions. Head Trauma GCS Score: 15 Medication Reconcilliation Current Medication List: was personally reviewed by me Blood Pressure Screening Patient's blood pressure: Elevated blood pressure Blood pressure disposition: Elevated BP felt to be situational Impression Primary Impression: Contusion of multiple sites Additional Impression: Fall Scribe Attestation The scribe's documentation has been prepared under my direction and personally reviewed by me in its entirety. I confirm that the note above accurately reflects all work, treatment, procedures, and medical decision making performed by me. Departure Information Dispostion Home / Self-Care Referrals Jim Sanches M.D. (PCP) Patient Instructions Bruises Contusions, ED Head Injury Closed, My [facility] Additional Instructions Please follow up with your primary care physician in the next 1-3 days for re- evaluation. You likely have suffered muscular strain and bruising. Otherwise, your exam, Xrays, and CT scans did not show signs of an emergent condition at this time. Take acetaminophen for pain as needed. Plan heating pad at 20 minute intervals throughout the day for additional pain relief and muscle relaxation. While you did not exhibit signs of a concussion today, he is experiencing recurrent headaches and nausea avoid sensory stimulus. Return to the emergency department for worsening symptoms as described in the accompanying instructions. Problem Qualifiers
[2016-11-24 14:00] VITALS: BP 131/65; PULSE 74; O2SAT 96
== END 2016-11-24 14:02 | disposition home or self-care (01) ==
LOC: C.EDB 10:47 → C.EDA 14:02
DX: S00.03XA Contusion of scalp, initial encounter (principal); S20.229A Contusion of unspecified back wall of thorax, initial encounter; R51 Headache; M79.7 Fibromyalgia; M25.512 Pain in left shoulder; W10.8XXA Fall (on) (from) other stairs and steps, initial encounter